=== PATIENT | female | born 2000 | race Caucasian/White ===

== ENCOUNTER 2020-03-15 20:56 | Emergency (ER) | payer MEDICAID, OTHER ==
--- NOTE | 2020-03-15 21:28 | EDM.PDOC ---
ED HPI GENERAL MEDICAL PROBLEM - General Chief Complaint: [employer] Problem Stated Complaint: VAG BLEEDING Time Seen by Provider: 03/15/20 21:28 Source of Information: Reports: Patient History Limitations: Reports: No Limitations - History of Present Illness INITIAL COMMENTS - FREE TEXT/NARRATIVE: PT ARRIVED WITH VAG SPOTTING AT APROX 6 WK GEATATION. sHE DID HAVE SOME CRAMPING TONIGHT. Onset: Today Duration: Hour(s): Location: Reports: Abdomen, Other ( VAG SPOTTING. ) Associated Symptoms: Reports: No Other Symptoms - Related Data Allergies Allergy/AdvReac Type Severity Reaction Status Date / Time Penicillins Allergy Cannot Verified 03/15/20 21:09 Remember Home Meds: Home Meds Comb No.42/Folic Acid [Prena1 Chew Tablet] 1 tab PO DAILY 03/15/20 [History] Past Medical History - Past Surgical History HEENT Surgical History: Reports: Myringotomy w Tube(s), Tonsillectomy Social & Family History - Tobacco Use Smoking Status *Q: Never Smoker ED ROS GENERAL - Review of Systems Review Of Systems: See Below Constitutional: Reports: No Symptoms HEENT: Reports: No Symptoms Respiratory: Reports: No Symptoms Cardiovascular: Reports: No Symptoms Endocrine: Reports: No Symptoms GI/Abdominal: Reports: No Symptoms : Reports: Other (PT IS 6 WKS PREG AND SHE IS NOW SPOTTING. ) Musculoskeletal: Reports: No Symptoms Skin: Reports: No Symptoms Neurological: Reports: No Symptoms Psychiatric: Reports: Anxiety Hematologic/Lymphatic: Reports: No Symptoms ED EXAM - Physical Exam Exam: See Below Text/Narrative:: PT ARRIVED WITH A HISTORY OF SPOTTING STARTING TODAY. sHE HAD CRAMPING THIS PM. Exam Limited By: No Limitations General Appearance: Alert, Anxious, Mild Distress Ears: Normal External Exam Nose: Normal Inspection Throat/Mouth: Normal Inspection Head: Atraumatic Neck: Normal Inspection Respiratory/Chest: No Respiratory Distress Cardiovascular: Regular Rate, Rhythm GI/Abdominal Exam: Soft, Non-Tender, Other ( NO MARKED TENDERNESS PRESENT. ) Rectal Exam: Deferred Back Exam: Normal Inspection Extremities: Normal Inspection Neurological: Alert, Oriented, Normal Cognition Course - Vital Signs Last Recorded V/S: Last Vital Signs Temp 36.9 C 03/15/20 21:16 Pulse 120 H 03/15/20 21:16 Resp 16 03/15/20 21:16 BP 132/93 H 03/15/20 21:16 Pulse Ox 98 03/15/20 21:16 - Orders/Labs/Meds Labs: Laboratory Tests 03/15/20 03/15/20 03/15/20 Range/Units 21:34 21:34 21:34 WBC 9.0 (4.5-11.0) K/uL RBC 5.01 (3.30-5.50) M/uL Hgb 14.4 (12.0-15.0) g/dL Hct 42.9 (36.0-48.0) % MCV 86 (80-98) fL MCH 29 (27-31) pg MCHC 34 (32-36) % Plt Count 360 (150-400) K/uL Neut % (Auto) 53 (36-66) % Lymph % (Auto) 37 (24-44) % [place] % (Auto) 8 H (2-6) % Eos % (Auto) 2 (2-4) % Baso % (Auto) 1 (0-1) % Sodium 139 L (140-148) mmol/L Potassium 3.8 (3.6-5.2) mmol/L Chloride 103 (100-108) mmol/L Carbon Dioxide 25 (21-32) mmol/L Anion Gap 14.8 H (5.0-14.0) mmol/L BUN 11 (7-18) mg/dL Creatinine 0.8 (0.6-1.0) mg/dL Est Cr Clr Drug Dosing 79.90 mL/min Estimated GFR (MDRD) > 60 (>60) Glucose 108 H (74-106) mg/dL Calcium 9.3 (8.5-10.1) mg/dL Total Bilirubin 0.3 (0.2-1.0) mg/dL AST 21 (15-37) U/L ALT 33 (12-78) U/L Alkaline Phosphatase 56 (46-116) U/L Total Protein 7.5 (6.4-8.2) g/dL Albumin 4.1 (3.4-5.0) g/dL Globulin 3.4 (2.3-3.5) g/dL Albumin/Globulin Ratio 1.2 (1.2-2.2) HCG, Quant 97 H (0-6) mIU/mL - Re-Assessments/Exams Free Text/Narrative Re-Assessment/Exam: 03/15/20 23:36 PT HAD A LOW HCG OF 95. sHE HAD A US WHICH SHOWED NO DEFINITE POLE OR SAC. hER OTHER LABS LOOK GOOD. Departure - Departure Time of Disposition: 23:30 Disposition: Home, Self-Care 01 Condition: Fair Clinical Impression: Abnormal human chorionic gonadotropin (hCG), Vaginal spotting - Discharge Information Instructions: Vaginal Bleeding During , First Trimester, [id number] Referrals: Anahi Vasquez CNM [Primary Care Provider] - Forms: ED Department Discharge Care Plan Goals: RTC IF PT SHOULD HAVE HEAVY BLEEDING, APPT WITH Anahi Vasquez IN 2 DAYS, REPEAT qUANTATIVE HCG AT THAT TIME. Sepsis Event Note (ED) - Evaluation Sepsis Screening Result: No Definite Risk
--- NOTE | 2020-03-16 00:03 | CRLUS ---
INDICATION: Vaginal bleeding, 5 weeks 0 days gestation by LMP TECHNIQUE: Ultrasound OB pelvis transvaginal. Real-time nieto-scale imaging of the pelvis was performed. COMPARISON: None FINDINGS: No intrauterine or extrauterine gestation identified. No free fluid. The uterus measures 7.7 x 2.6 x 3.8 cm. Endometrial stripe measures 0.8 cm. The ovaries are of normal size. Normal blood flow in both ovaries. IMPRESSION: No intrauterine or extrauterine gestation identified. This may be due to the early stage of . Recommend follow-up ultrasound. Dictated by Janee Rick MD @ Mar 16 2020 12:00AM Signed by Dr. Janee Rick @ Mar 16 2020 12:02AM
== END 2020-03-15 23:44 | disposition home or self-care (01) ==
LOC: JP.ED 20:56
DX: O26.851 Spotting complicating pregnancy, first trimester (principal); O99.891 Other specified diseases and conditions complicating pregnancy; R82.998 Other abnormal findings in urine; Z88.0 Allergy status to penicillin; Z3A.01 Less than 8 weeks gestation of pregnancy
CPT/HCPCS: 36415; 76801; 80053; 84702; 85025; 99283; 99284-25

== ENCOUNTER 2021-01-13 21:37 | Inpatient (IN) | payer OTHER ==
[2021-01-13] MEDS ORDERED: Sodium Chloride 0.9% 10 ML Syringe FLUSH PRN ×2 (22:14→23:34)
[2021-01-13] MEDS ORDERED: Acetaminophen 325 MG Tab PO PRN (23:34)
[2021-01-13] MEDS ORDERED: Ondansetron 4 MG/2 ML SDV IV PRN (23:34)
[2021-01-14 00:09] LABS: CORONAVIRUS COVID-19 NAA NEGATIVE (NEGATIVE)
--- NOTE | 2021-01-14 00:38 | PCM.LDHP ---
L&D History of Present Illness - General Date of Service: 01/14/21 Admit Problem/Dx: Patient Status Order with Admit Dx/Problem 01/13/21 22:11 Admission Status [Patient Status] [ADT] Routine 01/13/21 23:34 Patient Status [ADT] Routine Admission Diagnosis/Problem Admission Diagnosis/Problem - Related Data Allergies/Adverse Reactions: Allergies Allergy/AdvReac Type Severity Reaction Status Date / Time Penicillins Allergy Mild Hives Verified 01/13/21 21:57 Home Medications: Home Meds Comb No.42/Folic Acid [Prena1 Chew Tablet] 1 tab PO DAILY 03/15/20 [History] hydrOXYzine HCL [hydrOXYzine] 25 mg PO BEDTIME PRN 01/13/21 [History] Past Medical History PRESSER HAND History: Reports: - Past Surgical History HEENT Surgical History: Reports: Myringotomy w Tube(s), Tonsillectomy Social & Family History - Family History Family Medical History: No Pertinent Family History - Tobacco Use Tobacco Use Status *Q: Never Tobacco User Second Hand Smoke Exposure: No - Caffeine Use Caffeine Use: Reports: Coffee - Recreational Drug Use Recreational Drug Use: No H&P Review of Systems - Review of Systems: Review Of Systems: See Below General: Reports: No Symptoms HEENT: Reports: No Symptoms Pulmonary: Reports: No Symptoms Cardiovascular: Reports: No Symptoms Gastrointestinal: Reports: No Symptoms Genitourinary: Reports: No Symptoms Musculoskeletal: Reports: No Symptoms Skin: Reports: No Symptoms Psychiatric: Reports: No Symptoms Neurological: Reports: No Symptoms Hematologic/Lymphatic: Reports: No Symptoms Immunologic: Reports: No Symptoms L&D Exam - Exam Exam: See Below - Vital Signs Vital Signs: Last Vital Signs Temp 36.4 C 01/13/21 22:00 Pulse 120 H 01/13/21 22:00 Resp 18 01/13/21 22:00 BP 131/70 01/13/21 22:00 Pulse Ox 97 01/13/21 22:00 Weight: 72.575 kg - OB Specific Contraction Duration (sec): 30-80 Contraction Frequency (min): 1.5-4 Contraction Intensity: Mild Heart Rate (FHR) Variability: Moderate (6-25 bpm) Presentation: Vertex - Nagel Score Nagel Score Cervix Position: Anterior Nagel Score Consistency: Soft Nagel Score Effacement: >80% Nagel Score Dilation: 1-2 cm Nagel Score Infant's Station: -2 Nagel Score Total: 9 - Exam General: Alert, Oriented, Cooperative HEENT: PERRLA, Conjunctiva Clear, EACs Clear, EOMI, Hearing Intact, Mucosa Moist & [place], Nares Patent, Normal Nasal Septum, Posterior Pharynx Clear, TMs Clear Neck: Supple, Trachea Midline Lungs: Clear to Auscultation, Normal Respiratory Effort Cardiovascular: Regular Rate, Regular Rhythm GI/Abdominal Exam: Normal Bowel Sounds, Soft, Non-Tender, No Organomegaly, No Distention, No Abnormal Bruit, No Mass, Pelvis Stable Rectal Exam: Normal Exam, Normal Rectal Tone Genitourinary: Normal external exam, Normal bimanual exam, Normal speculum exam Back Exam: Normal Inspection, Full Range of Motion Extremities: Normal Inspection, Normal Range of Motion, Non-Tender, No Pedal Edema, Normal Capillary Refill Skin: Warm, Dry, Intact Neurological: Cranial Nerves Intact, Reflexes Equal Bilateral Psychiatric: Alert, Normal Affect, Normal Mood - Patient Data Lab Results Last 24 hrs: Laboratory Results - last 24 hr 01/13/21 01/13/21 01/13/21 Range/Units 21:46 21:57 22:15 WBC (4.5-11.0) K/uL RBC (3.30-5.50) M/uL Hgb (12.0-15.0) g/dL Hct (36.0-48.0) % MCV (80-98) fL MCH (27-31) pg MCHC (32-36) % Plt Count (150-400) K/uL Neut % (Auto) (36-66) % Lymph % (Auto) (24-44) % [place] % (Auto) (2-6) % Eos % (Auto) (2-4) % Baso % (Auto) (0-1) % Urine Color Yellow (YELLOW) Urine Appearance Turbid A (CLEAR) Urine pH 7.5 (5.0-8.0) Ur Specific [place] 1.015 (1.008-1.030) Urine Protein 100 H (NEGATIVE) mg/dL Urine Glucose (UA) Negative (NEGATIVE) mg/dL Urine Ketones Negative (NEGATIVE) mg/dL Urine Occult Blood Trace-intact H (NEGATIVE) Urine Nitrite Negative (NEGATIVE) Urine Bilirubin Negative (NEGATIVE) Urine Urobilinogen 0.2 (0.2-1.0) EU/dL Ur Leukocyte Esterase Small H (NEGATIVE) Urine RBC 0-5 (0-5) Urine WBC 0-5 (0-5) Ur Epithelial Cells Moderate Amorphous Sediment Moderate Urine Bacteria Few Urine Mucus Moderate Membrane Rupture Positive H (NEGATIVE) Urine Opiates Screen Negative (NEGATIVE) Ur Oxycodone Screen Negative (NEGATIVE) Urine Methadone Screen Negative (NEGATIVE) Ur Propoxyphene Screen Negative (NEGATIVE) Ur Barbiturates Screen Negative (NEGATIVE) Ur Tricyclics Screen Negative (NEGATIVE) Ur Phencyclidine Scrn Negative (NEGATIVE) Ur Amphetamine Screen Negative (NEGATIVE) U Methamphetamines Scrn Negative (NEGATIVE) Urine MDMA Screen Negative (NEGATIVE) U Benzodiazepines Scrn Negative (NEGATIVE) U Cocaine Metab Screen Negative (NEGATIVE) U Marijuana (THC) Screen Negative (NEGATIVE) 01/13/21 Range/Units 22:24 WBC 9.9 (4.5-11.0) K/uL RBC 4.16 (3.30-5.50) M/uL Hgb 12.7 (12.0-15.0) g/dL Hct 36.3 (36.0-48.0) % MCV 87 (80-98) fL MCH 31 (27-31) pg MCHC 35 (32-36) % Plt Count 248 (150-400) K/uL Neut % (Auto) 69.5 H (36-66) % Lymph % (Auto) 22.4 L (24-44) % [place] % (Auto) 7.0 H (2-6) % Eos % (Auto) 0.9 L (2-4) % Baso % (Auto) 0.2 (0-1) % Urine Color (YELLOW) Urine Appearance (CLEAR) Urine pH (5.0-8.0) Ur Specific [place] (1.008-1.030) Urine Protein (NEGATIVE) mg/dL Urine Glucose (UA) (NEGATIVE) mg/dL Urine Ketones (NEGATIVE) mg/dL Urine Occult Blood (NEGATIVE) Urine Nitrite (NEGATIVE) Urine Bilirubin (NEGATIVE) Urine Urobilinogen (0.2-1.0) EU/dL Ur Leukocyte Esterase (NEGATIVE) Urine RBC (0-5) Urine WBC (0-5) Ur Epithelial Cells Amorphous Sediment Urine Bacteria Urine Mucus Membrane Rupture (NEGATIVE) Urine Opiates Screen (NEGATIVE) Ur Oxycodone Screen (NEGATIVE) Urine Methadone Screen (NEGATIVE) Ur Propoxyphene Screen (NEGATIVE) Ur Barbiturates Screen (NEGATIVE) Ur Tricyclics Screen (NEGATIVE) Ur Phencyclidine Scrn (NEGATIVE) Ur Amphetamine Screen (NEGATIVE) U Methamphetamines Scrn (NEGATIVE) Urine MDMA Screen (NEGATIVE) U Benzodiazepines Scrn (NEGATIVE) U Cocaine Metab Screen (NEGATIVE) U Marijuana (THC) Screen (NEGATIVE) Result Diagrams: 01/13/21 22:24 - Problem List (1) SROM (spontaneous rupture of membranes) SNOMED Code(s): 316058521 ICD Code: ALG0831 - Status: Acute Current Visit: Yes (2) SNOMED Code(s): 11035426 ICD Code: Z34.90 - ENCNTR FOR SUPRVSN OF NORMAL , UNSP, UNSP TRIMESTER Status: Acute Current Visit: Yes Qualifiers: Weeks of gestation: 39 weeks Qualified Code(s): Z3A.39 - 39 weeks gestation of (3) Primigravida SNOMED Code(s): 012494570 ICD Code: Z34.00 - ENCNTR FOR SUPRVSN OF NORMAL FIRST , UNSP TRIMESTER Status: Acute Current Visit: Yes Qualifiers: Trimester: third trimester Qualified Code(s): Z34.03 - Encounter for supervision of normal first , third trimester Problem List Initiated/Reviewed/Updated: Yes Orders Last 24hrs: Active Orders 24 hr Category Date Time Status Admission Status [Patient Status] [ADT] Routine ADT 01/13/21 22:11 Active Patient Status [ADT] Routine ADT 01/13/21 23:34 Active Ambulate [RC] PER UNIT ROUTINE Care 01/13/21 23:34 Active Communication Order [RC] ASDIRECTED Care 01/13/21 23:34 Active Heart Tones [RC] PER UNIT ROUTINE Care 01/13/21 23:34 Active Non Stress Test [RC] Click to Edit Care 01/13/21 23:34 Active May Shower [RC] ASDIRECTED Care 01/13/21 23:34 Active Notify Provider Vital Signs [RC] PRN Care 01/13/21 23:34 Active Notify Provider [RC] PRN Care 01/13/21 23:34 Active OB Check [OM.PC] Click To Edit Care 01/13/21 21:40 Ordered Up ad Jagruti [RC] ASDIRECTED Care 01/13/21 23:34 Active VTE/DVT Education [RC] Click to Edit Care 01/13/21 23:36 Active Vital Signs [RC] PER UNIT ROUTINE Care 01/13/21 23:34 Active Regular Diet [DIET] Diet 01/13/21 Breakfast Active COVID-19/FLU A+B/RSV [MOLEC] Urgent Lab 01/13/21 22:58 Received Acetaminophen [TylenoL] Med 01/13/21 23:34 Active 650 mg PO Q4H PRN Ondansetron [Zofran] Med 01/13/21 23:34 Active 4 mg IV Q4H PRN Oxytocin/Normal Saline [Pitocin in NS 20 Units/1,000 ML Med 01/14/21 04:00 Active ] 20 unit in 1,000 ml IV TITRATE Sodium Chloride 0.9% [Saline Flush] Med 01/13/21 22:14 Active 10 ml FLUSH ASDIRECTED PRN Sodium Chloride 0.9% [Saline Flush] Med 01/13/21 23:34 Active 10 ml FLUSH ASDIRECTED PRN DVT/VTE Prophylaxis Reflex [OM.PC] Routine Oth 01/13/21 23:34 Ordered Saline Lock Insert [OM.PC] Routine Oth 01/13/21 22:14 Ordered Saline Lock Insert [OM.PC] Routine Oth 01/13/21 23:34 Ordered Resuscitation Status Routine Resus Stat 01/13/21 23:34 Ordered Medication Orders Acetaminophen (Acetaminophen 325 Mg Tab) 650 mg PO Q4H PRN PRN Reason: Pain (Mild 1-3) and fever Oxytocin/Sodium Chloride (Pitocin In Ns 20 Units/1,000 Ml) 20 unit in 1,000 mls @ 6 mls/hr IV TITRATE JAYME; Protocol Ondansetron HCl (Ondansetron 4 Mg/2 Ml Sdv) 4 mg IV Q4H PRN PRN Reason: Nausea/Vomiting Sodium Chloride (Sodium Chloride 0.9% 10 Ml Syringe) 10 ml FLUSH ASDIRECTED PRN PRN Reason: Keep Vein Open Sodium Chloride (Sodium Chloride 0.9% 10 Ml Syringe) 10 ml FLUSH ASDIRECTED PRN PRN Reason: Keep Vein Open Assessment/Plan Comment:: 20 yo here at 39 4/7 gestational weeks. She came in with SROM at home on 01/13/2021 at 2130. She denied very many contractions at this time. SVE-2/80/-2 Amnisure positive FHTs category one Labs-A positive, Hep B neg, Hep C neg, HIV neg, RPR nonreactive, Rubella Immune, GBS negative Plan- Monitor for labor Monitor FHTs Patient may eat regular diet Patient may be up ad jagruti Pain management per patient request If no cervical change will initiate pitocin per protocol Plan and anticipate a vaginal delivery
[2021-01-14] MEDS: Misoprostol 25 MCG (1/4 of 100 MCG) Tab PO SCH ×2 (02:45→05:01)
[2021-01-14] MEDS ORDERED: hydrOXYzine HCL 100 MG/2 ML SDV IM ONE (02:59)
[2021-01-14] MEDS ORDERED: Lactated Ringers 1,000 ML IV SCH ×2 (05:15→07:15)
[2021-01-14] MEDS ORDERED: diphenhydrAMINE 50 MG/ML SDV IVPUSH PRN ×3 (07:06→17:00)
[2021-01-14] MEDS ORDERED: Naloxone 0.4 MG/ML SDV IVPUSH PRN ×2 (07:06→17:00)
[2021-01-14] MEDS ORDERED: ePHEDrine 50 MG/ML SDV IVPUSH PRN (07:06)
[2021-01-14] MEDS ORDERED: Sodium Chloride 0.9% 10 ML Syringe FLUSH PRN (07:06)
[2021-01-14] MEDS ORDERED: Ropivacaine 200 MG in Premix Bag 1 BAG EPIDUR SCH (07:15)
[2021-01-14] MEDS ORDERED: fentaNYL 100 MCG/2 ML SDV IVPUSH ONE (07:23)
--- NOTE | 2021-01-14 08:30 | PCM.PNLD ---
Labor Progress Note - VS & Meds Vital Signs: Last Vital Signs Temp 36.1 C 01/14/21 07:28 Pulse 84 01/14/21 07:28 Resp 18 01/14/21 07:28 BP 121/74 01/14/21 07:28 Pulse Ox 98 01/14/21 07:28 Active Medications: Current Medications Acetaminophen (Acetaminophen 325 Mg Tab) 650 mg PO Q4H PRN PRN Reason: Pain (Mild 1-3) and fever Diphenhydramine HCl (Diphenhydramine 50 Mg/Ml Sdv) 25 mg IVPUSH Q6H PRN PRN Reason: Itching Diphenhydramine HCl (Diphenhydramine 50 Mg/Ml Sdv) 50 mg IVPUSH Q6H PRN PRN Reason: Itching Ephedrine Sulfate (Ephedrine 50 Mg/Ml Sdv) 10 mg IVPUSH ASDIRECTED PRN PRN Reason: Hypotension Oxytocin/Sodium Chloride (Pitocin In Ns 20 Units/1,000 Ml) 20 unit in 1,000 mls @ 6 mls/hr IV TITRATE JAYME; Protocol Lactated Ringer's (Ringers, Lactated) 1,000 mls @ 125 mls/hr IV ASDIRECTED JAYME Ropivacaine 200 mg/ Premix 100 mls @ 0 mls/hr EPIDUR ASDIRECTED JAYME Naloxone HCl (Naloxone 0.4 Mg/Ml Sdv) 0.1 mg IVPUSH ASDIRECTED PRN PRN Reason: Oversedation Ondansetron HCl (Ondansetron 4 Mg/2 Ml Sdv) 4 mg IV Q4H PRN PRN Reason: Nausea/Vomiting Sodium Chloride (Sodium Chloride 0.9% 10 Ml Syringe) 10 ml FLUSH ASDIRECTED PRN PRN Reason: Keep Vein Open Sodium Chloride (Sodium Chloride 0.9% 10 Ml Syringe) 10 ml FLUSH ASDIRECTED PRN PRN Reason: Keep Vein Open Sodium Chloride (Sodium Chloride 0.9% 10 Ml Syringe) 10 ml FLUSH ASDIRECTED PRN PRN Reason: Keep Vein Open Discontinued Medications Fentanyl (Fentanyl 100 Mcg/2 Ml Sdv) 100 mcg IVPUSH ONETIME ONE Stop: 01/14/21 07:24 Last Admin: 01/14/21 07:31 Dose: 50 mcg Documented by: Hydroxyzine HCl (Hydroxyzine Hcl 100 Mg/2 Ml Sdv) 100 mg IM ONETIME ONE Stop: 01/14/21 03:00 Last Admin: 01/14/21 03:10 Dose: 100 mg Documented by: Lactated Ringer's (Ringers, Lactated) 1,000 mls @ 999 mls/hr IV ASDIRECTED [facility] Stop: 01/14/21 08:08 Misoprostol (Misoprostol 25 Mcg (1/4 Of 100 Mcg) Tab) 25 mcg PO Q2H [facility] Stop: 01/14/21 04:31 Last Admin: 01/14/21 05:01 Dose: 25 mcg Documented by: - Uterine Contractions Uterine Monitoring Mode: External [place] Contraction Frequency (min): 4-11 Contraction Duration (sec): 50-80 Contraction Intensity: Moderate Uterine Resting Tone: Soft - Monitoring Monitor Mode: External Ultrasound Heart Rate (FHR) Variability: Moderate (6-25 bpm) Accelerations: Present, 15x15 Decelerations: None Strip Review: Category I - Vaginal Exam Dilation (cm): 2 Effacement (Percent): 80 Station: -2 Cervical Position: Midposition Sterile Vaginal Exam Performed By: Anahi Cano - Labor Progress (Free Text) Labor Progress: 01/14/2021 Patient has not progressed much with SVE FHTs category one Contractions still irregular at bedside and supportive Plan- Will start with oral cytotec 25 mcg every two hours Then is still not good labor pattern will start pitocin per protocol Continue to monitor labor Continue to monitor FHTs Pain management per patient request Plan and anticipate a vaginal delivery
--- NOTE | 2021-01-14 08:38 | PCM.PNLD ---
Labor Progress Note - VS & Meds Vital Signs: Last Vital Signs Temp 36.1 C 01/14/21 07:28 Pulse 84 01/14/21 07:28 Resp 18 01/14/21 07:28 BP 121/74 01/14/21 07:28 Pulse Ox 98 01/14/21 07:28 Active Medications: Current Medications Acetaminophen (Acetaminophen 325 Mg Tab) 650 mg PO Q4H PRN PRN Reason: Pain (Mild 1-3) and fever Diphenhydramine HCl (Diphenhydramine 50 Mg/Ml Sdv) 25 mg IVPUSH Q6H PRN PRN Reason: Itching Diphenhydramine HCl (Diphenhydramine 50 Mg/Ml Sdv) 50 mg IVPUSH Q6H PRN PRN Reason: Itching Ephedrine Sulfate (Ephedrine 50 Mg/Ml Sdv) 10 mg IVPUSH ASDIRECTED PRN PRN Reason: Hypotension Oxytocin/Sodium Chloride (Pitocin In Ns 20 Units/1,000 Ml) 20 unit in 1,000 mls @ 6 mls/hr IV TITRATE JAYME; Protocol Lactated Ringer's (Ringers, Lactated) 1,000 mls @ 125 mls/hr IV ASDIRECTED JAYME Ropivacaine 200 mg/ Premix 100 mls @ 0 mls/hr EPIDUR ASDIRECTED JAYME Naloxone HCl (Naloxone 0.4 Mg/Ml Sdv) 0.1 mg IVPUSH ASDIRECTED PRN PRN Reason: Oversedation Ondansetron HCl (Ondansetron 4 Mg/2 Ml Sdv) 4 mg IV Q4H PRN PRN Reason: Nausea/Vomiting Sodium Chloride (Sodium Chloride 0.9% 10 Ml Syringe) 10 ml FLUSH ASDIRECTED PRN PRN Reason: Keep Vein Open Sodium Chloride (Sodium Chloride 0.9% 10 Ml Syringe) 10 ml FLUSH ASDIRECTED PRN PRN Reason: Keep Vein Open Sodium Chloride (Sodium Chloride 0.9% 10 Ml Syringe) 10 ml FLUSH ASDIRECTED PRN PRN Reason: Keep Vein Open Discontinued Medications Fentanyl (Fentanyl 100 Mcg/2 Ml Sdv) 100 mcg IVPUSH ONETIME ONE Stop: 01/14/21 07:24 Last Admin: 01/14/21 07:31 Dose: 50 mcg Documented by: Hydroxyzine HCl (Hydroxyzine Hcl 100 Mg/2 Ml Sdv) 100 mg IM ONETIME ONE Stop: 01/14/21 03:00 Last Admin: 01/14/21 03:10 Dose: 100 mg Documented by: Lactated Ringer's (Ringers, Lactated) 1,000 mls @ 999 mls/hr IV ASDIRECTED [facility] Stop: 01/14/21 08:08 Misoprostol (Misoprostol 25 Mcg (1/4 Of 100 Mcg) Tab) 25 mcg PO Q2H [facility] Stop: 01/14/21 04:31 Last Admin: 01/14/21 05:01 Dose: 25 mcg Documented by: - Uterine Contractions Uterine Monitoring Mode: External [place] Contraction Frequency (min): 6.5-11 Contraction Duration (sec): 50-80 Contraction Intensity: Moderate Uterine Resting Tone: Soft - Monitoring Monitor Mode: External Ultrasound Heart Rate (FHR) Variability: Moderate (6-25 bpm) Accelerations: Present, 15x15 Decelerations: None Strip Review: Category I - Vaginal Exam Dilation (cm): 4 Effacement (Percent): 90 Station: -1 Cervical Position: Anterior Sterile Vaginal Exam Performed By: Anahi Cano - Labor Progress (Free Text) Labor Progress: 01/14/2021 Patient slowly progressing SVE-4//-1 Did have a forebag so AROM to that and clear fluid FHTs category one Contractions still very irregular Patient did request epidural-got a half dose of fentanyl while waiting remains at bedside and supportive Patient doing well with position changes Plan- Continue to monitor labor Continue to monitor FHTs Patient can get an epidural for pain management Start pitocin after epidural per protocol Position change regularly after epidural Place urinary catheter after epidural Plan and anticipate a vaginal delivery
[2021-01-14] MEDS ORDERED: Ropivacaine 100 ML ONE (09:36)
[2021-01-14] MEDS ORDERED: Clindamycin Phosphate 900 MG in Sodium Chloride 0.9% 100 ML IV SCH (11:30)
[2021-01-14] MEDS ORDERED: Lactated Ringers 500 ML IV ONE (11:30)
--- NOTE | 2021-01-14 12:38 | ANES ---
DATE OF SERVICE: 01/14/2021 INDICATION: Rosie is a 20-year-old female, patient of Anahi Cano CNM. I was consulted to assess the patient for labor epidural. Upon arrival, I found a healthy 20-year- old female patient and I discussed with her risks and benefits as well as the procedure. I also discussed with her procedure and reviewed her history, found no contraindication to epidural placement. I reviewed lab work, found no contraindication. TECHNIQUE: I had her seated at the edge of the bed. Betadine prep x3 to lumbar region. Sterile drape was placed, 1% lidocaine skin wheal as well as deep at the L4-L5 region. A 17- gauge Tuohy was placed to loss of resistance. Negative CSF, negative heme, negative paresthesia. I placed a silicone catheter to 13 cm. I removed the needle. I introduced a test dose of 3 mL of 1.5% lidocaine, 1:200,000 epinephrine. She tolerated that quite well. I placed her in a supine position after securing catheter, dosed her with 12 mL 0.2% ropivacaine and began infusion of 12 mL an hour of the same 0.2% ropivacaine. She tolerated the procedure quite well. Please refer to nurse's notes for vital signs and neuro status, which were unchanged and within normal limits. I reviewed the procedure with the dose to the nurse. Castillo Lerner CRNA /[id number]
--- NOTE | 2021-01-14 12:44 | PCM.PNLD ---
Labor Progress Note - VS & Meds Vital Signs: Last Vital Signs Temp 36.1 C 01/14/21 07:28 Pulse 104 H 01/14/21 11:53 Resp 18 01/14/21 11:53 BP 122/75 01/14/21 11:53 Pulse Ox 99 01/14/21 11:51 Active Medications: Current Medications Acetaminophen (Acetaminophen 325 Mg Tab) 650 mg PO Q4H PRN PRN Reason: Pain (Mild 1-3) and fever Diphenhydramine HCl (Diphenhydramine 50 Mg/Ml Sdv) 25 mg IVPUSH Q6H PRN PRN Reason: Itching Diphenhydramine HCl (Diphenhydramine 50 Mg/Ml Sdv) 50 mg IVPUSH Q6H PRN PRN Reason: Itching Ephedrine Sulfate (Ephedrine 50 Mg/Ml Sdv) 10 mg IVPUSH ASDIRECTED PRN PRN Reason: Hypotension Oxytocin/Sodium Chloride (Pitocin In Ns 20 Units/1,000 Ml) 20 unit in 1,000 mls @ 6 mls/hr IV TITRATE [facility]; Protocol Last Titration: 01/14/21 11:10 Dose: 0 munits/min, 0 mls/hr Documented by: Lactated Ringer's (Ringers, Lactated) 1,000 mls @ 125 mls/hr IV ASDIRECTED [facility] Last Admin: 01/14/21 08:42 Dose: 125 mls/hr Documented by: Ropivacaine 200 mg/ Premix 100 mls @ 0 mls/hr EPIDUR ASDIRECTED [facility] Clindamycin Phosphate 900 mg/ (Sodium Chloride) 106 mls @ 200 mls/hr IV Q8H [facility] Last Admin: 01/14/21 11:44 Dose: 200 mls/hr Documented by: Naloxone HCl (Naloxone 0.4 Mg/Ml Sdv) 0.1 mg IVPUSH ASDIRECTED PRN PRN Reason: Oversedation Ondansetron HCl (Ondansetron 4 Mg/2 Ml Sdv) 4 mg IV Q4H PRN PRN Reason: Nausea/Vomiting Sodium Chloride (Sodium Chloride 0.9% 10 Ml Syringe) 10 ml FLUSH ASDIRECTED PRN PRN Reason: Keep Vein Open Discontinued Medications Fentanyl (Fentanyl 100 Mcg/2 Ml Sdv) 100 mcg IVPUSH ONETIME ONE Stop: 01/14/21 07:24 Last Admin: 01/14/21 07:31 Dose: 50 mcg Documented by: Hydroxyzine HCl (Hydroxyzine Hcl 100 Mg/2 Ml Sdv) 100 mg IM ONETIME ONE Stop: 01/14/21 03:00 Last Admin: 01/14/21 03:10 Dose: 100 mg Documented by: Lactated Ringer's (Ringers, Lactated) 1,000 mls @ 999 mls/hr IV ASDIRECTED [facility] Stop: 01/14/21 08:08 Last Admin: 01/14/21 07:10 Dose: 999 mls/hr Documented by: Ropivacaine (Naropin 0.2%) Confirm Administered Dose 100 mls @ as directed .ROUTE .STK-MED ONE Stop: 01/14/21 09:37 Lactated Ringer's (Ringers, Lactated) 500 mls @ 999 mls/hr IV ASDIRECTED ONE Stop: 01/14/21 12:00 Last Admin: 01/14/21 11:30 Dose: 999 mls/hr Documented by: Misoprostol (Misoprostol 25 Mcg (1/4 Of 100 Mcg) Tab) 25 mcg PO Q2H [facility] Stop: 01/14/21 04:31 Last Admin: 01/14/21 05:01 Dose: 25 mcg Documented by: - Uterine Contractions Uterine Monitoring Mode: External [place] Contraction Frequency (min): 2.5-5.5 Contraction Duration (sec): 40-70 Contraction Intensity: Mild to Moderate Uterine Resting Tone: Soft - Monitoring Monitor Mode: External Ultrasound Heart Rate (FHR) Variability: Moderate (6-25 bpm) Accelerations: Present, 15x15 Decelerations: None Strip Review: Category I - Vaginal Exam Dilation (cm): 4 Effacement (Percent): 90 Station: -1 Cervical Position: Anterior Sterile Vaginal Exam Performed By: Anahi Cano - Labor Progress (Free Text) Labor Progress: 01/14/2021 Patient still not progressing FHTs occasionally have variables with contractions SVE unchanged Did shut Pitocin off for a Pitocin break. IV bolus initiated Position changed Started antibiotics for prolonged rupture of membranes Plan- Continue to monitor labor Continue to monitor FHTs Continue epidural for pain management Continue position change as needed
[2021-01-14] MEDS ORDERED: fentaNYL 100 MCG/2 ML SDV ONE ×2 (13:22→14:46)
[2021-01-14] MEDS ORDERED: Lidocaine 2% 5 ML SDV ONE (13:23)
[2021-01-14] MEDS ORDERED: Oxytocin 10 Units/1 ML SDV ONE (13:24)
[2021-01-14] MEDS ORDERED: Sodium Chloride 0.9% 10 ML ONE (13:24)
[2021-01-14] MEDS ORDERED: cefOXitin 2 GM Vial ONE (13:24)
[2021-01-14] MEDS ORDERED: Bupivacaine 0.5% 30 ML SDV ONE (13:45)
[2021-01-14] MEDS: Oxytocin 10 Units/1 ML SDV ONE ×2 (14:02→14:10)
[2021-01-14] MEDS: cefOXitin 1 GM Vial ONE ×3 (14:03→14:32)
[2021-01-14] MEDS ORDERED: Morphine PF 10 MG/10 ML SDV ONE (14:29)
--- NOTE | 2021-01-14 15:28 | PCM.PNLD ---
Labor Progress Note - VS & Meds Vital Signs: Last Vital Signs Temp 37 C 01/14/21 15:25 Pulse 99 01/14/21 15:25 Resp 16 01/14/21 15:25 BP 115/78 01/14/21 15:25 Pulse Ox 99 01/14/21 15:25 Active Medications: Current Medications Acetaminophen (Acetaminophen 325 Mg Tab) 650 mg PO Q4H PRN PRN Reason: Pain (Mild 1-3) and fever Diphenhydramine HCl (Diphenhydramine 50 Mg/Ml Sdv) 25 mg IVPUSH Q6H PRN PRN Reason: Itching Diphenhydramine HCl (Diphenhydramine 50 Mg/Ml Sdv) 50 mg IVPUSH Q6H PRN PRN Reason: Itching Ephedrine Sulfate (Ephedrine 50 Mg/Ml Sdv) 10 mg IVPUSH ASDIRECTED PRN PRN Reason: Hypotension Oxytocin/Sodium Chloride (Pitocin In Ns 20 Units/1,000 Ml) 20 unit in 1,000 mls @ 6 mls/hr IV TITRATE [facility]; Protocol Last Titration: 01/14/21 12:50 Dose: 2 munits/min, 6 mls/hr Documented by: Lactated Ringer's (Ringers, Lactated) 1,000 mls @ 125 mls/hr IV ASDIRECTED [facility] Last Admin: 01/14/21 08:42 Dose: 125 mls/hr Documented by: Ropivacaine 200 mg/ Premix 100 mls @ 0 mls/hr EPIDUR ASDIRECTED [facility] Clindamycin Phosphate 900 mg/ (Sodium Chloride) 106 mls @ 200 mls/hr IV Q8H [facility] Last Admin: 01/14/21 11:44 Dose: 200 mls/hr Documented by: Naloxone HCl (Naloxone 0.4 Mg/Ml Sdv) 0.1 mg IVPUSH ASDIRECTED PRN PRN Reason: Oversedation Ondansetron HCl (Ondansetron 4 Mg/2 Ml Sdv) 4 mg IV Q4H PRN PRN Reason: Nausea/Vomiting Sodium Chloride (Sodium Chloride 0.9% 10 Ml Syringe) 10 ml FLUSH ASDIRECTED PRN PRN Reason: Keep Vein Open Discontinued Medications Bupivacaine HCl (Bupivacaine 0.5% 30 Ml Sdv) Confirm Administered Dose 30 ml .ROUTE .STK-MED ONE Stop: 01/14/21 13:46 Cefoxitin Sodium (Cefoxitin 1 Gm Vial) Confirm Administered Dose 1 gm .ROUTE .[facility] ONE Stop: 01/14/21 13:20 Last Admin: 01/14/21 14:32 Dose: 1 gm Documented by: Cefoxitin Sodium (Cefoxitin 2 Gm Vial) Confirm Administered Dose 2 gm .ROUTE .[facility] ONE Stop: 01/14/21 13:25 Fentanyl (Fentanyl 100 Mcg/2 Ml Sdv) 100 mcg IVPUSH ONETIME ONE Stop: 01/14/21 07:24 Last Admin: 01/14/21 07:31 Dose: 50 mcg Documented by: Fentanyl (Fentanyl 100 Mcg/2 Ml Sdv) Confirm Administered Dose 100 mcg .ROUTE .[facility] ONE Stop: 01/14/21 13:23 Fentanyl (Fentanyl 100 Mcg/2 Ml Sdv) Confirm Administered Dose 100 mcg .ROUTE .[facility] ONE Stop: 01/14/21 14:47 Hydroxyzine HCl (Hydroxyzine Hcl 100 Mg/2 Ml Sdv) 100 mg IM ONETIME ONE Stop: 01/14/21 03:00 Last Admin: 01/14/21 03:10 Dose: 100 mg Documented by: Lactated Ringer's (Ringers, Lactated) 1,000 mls @ 999 mls/hr IV ASDIRECTED [facility] Stop: 01/14/21 08:08 Last Admin: 01/14/21 07:10 Dose: 999 mls/hr Documented by: Ropivacaine (Naropin 0.2%) Confirm Administered Dose 100 mls @ as directed .ROUTE .[facility] ONE Stop: 01/14/21 09:37 Lactated Ringer's (Ringers, Lactated) 500 mls @ 999 mls/hr IV ASDIRECTED ONE Stop: 01/14/21 12:00 Last Admin: 01/14/21 11:30 Dose: 999 mls/hr Documented by: Sodium Chloride (Normal Saline) Confirm Administered Dose 10 mls @ as directed .ROUTE .[facility] ONE Stop: 01/14/21 13:25 Lidocaine (Lidocaine 2% 5 Ml Sdv) Confirm Administered Dose 15 ml .ROUTE .[facility] ONE Stop: 01/14/21 13:24 Misoprostol (Misoprostol 25 Mcg (1/4 Of 100 Mcg) Tab) 25 mcg PO Q2H [facility] Stop: 01/14/21 04:31 Last Admin: 01/14/21 05:01 Dose: 25 mcg Documented by: Morphine Sulfate (Morphine Pf 10 Mg/10 Ml Sdv) Confirm Administered Dose 10 mg .ROUTE .STK-MED ONE Stop: 01/14/21 14:30 Oxytocin (Oxytocin 10 Units/1 Ml Sdv) Confirm Administered Dose 10 unit .ROUTE .STK-MED ONE Stop: 01/14/21 13:20 Last Admin: 01/14/21 14:10 Dose: 10 unit Documented by: Oxytocin (Oxytocin 10 Units/1 Ml Sdv) Confirm Administered Dose 20 unit .ROUTE .STK-MED ONE Stop: 01/14/21 13:25 - Uterine Contractions Uterine Monitoring Mode: External [place] Contraction Frequency (min): 2.5-5 Contraction Duration (sec): 40-100 Contraction Intensity: Mild to Moderate Uterine Resting Tone: Soft - Monitoring Monitor Mode: External Ultrasound Heart Rate (FHR) Variability: Moderate (6-25 bpm) Accelerations: Present, 15x15 Decelerations: None Strip Review: Category I - Vaginal Exam Dilation (cm): 6 Effacement (Percent): 90 Station: -1 Cervical Position: Anterior Sterile Vaginal Exam Performed By: Anahi Cano - Labor Progress (Free Text) Labor Progress: 01/14/2021 Patient has made very little progress again. Patient and significant other are tearful and frustrated. Patient desires a primary for failure to progress. Discussed risks and benefits of with patient and spouse. Both verbalize understanding and agree with plan of care. Decision made to proceed with primary . OR crew notified and Dr Bear notified. FHTs category one Contractions still irregular
[2021-01-14] MEDS ORDERED: Lanolin 100% Cream 40 GM Tube TOP PRN (15:29)
[2021-01-14] MEDS ORDERED: hydrOXYzine HCL 100 MG/2 ML SDV IM PRN (15:56)
[2021-01-14] MEDS ORDERED: Naloxone 0.4 MG/ML SDV IV PRN (17:00)
[2021-01-14] MEDS: Ibuprofen 600 MG Tab PO SCH ×2 (17:40→23:13)
[2021-01-14] MEDS: Acetaminophen 500 MG Tab PO SCH ×2 (17:40→23:13)
[2021-01-14] MEDS: Dextrose 5%-Lactated Ringers 1,000 ML IV SCH (19:42)
[2021-01-14] MEDS: cefOXitin 2 GM in Sodium Chloride 0.9% 50 ML IV SCH (19:44)
[2021-01-15] MEDS: Morphine PF 10 MG/10 ML SDV EPIDUR SCH ×3 (00:14→21:57)
[2021-01-15] MEDS: Dextrose 5%-Lactated Ringers 1,000 ML IV SCH (01:36)
[2021-01-15] MEDS: cefOXitin 2 GM in Sodium Chloride 0.9% 50 ML IV SCH ×4 (01:37→21:07)
[2021-01-15] MEDS: Ibuprofen 600 MG Tab PO SCH ×4 (06:23→22:08)
[2021-01-15] MEDS: Acetaminophen 500 MG Tab PO SCH ×4 (06:24→22:08)
[2021-01-15] MEDS ORDERED: Dextrose 5%-Lactated Ringers 1,000 ML IV SCH (07:30)
[2021-01-15] MEDS ORDERED: Morphine PF 10 MG/10 ML SDV ONE (07:31)
[2021-01-15] MEDS: Docusate Sodium 100 MG Cap PO SCH ×2 (08:24→21:08)
--- NOTE | 2021-01-15 09:26 | PN ---
DATE OF SERVICE: 01/15/2021 The patient is postop day #1 from a section for failure to progress. Clinically, she has done well overnight. Hemoglobin is in the 9's, but has not had any significant postoperative bleeding. Urine output remains remove the catheter, in which case switch over to oral pain medicine in addition to Tylenol and Motrin that she is on already. Discontinue the Escalera catheter and saline lock the IV. We will go up to a regular diet. Begin some stool softener today as well. Lam Bear MD /[id number]
[2021-01-15] MEDS: HYDROmorphone 2 MG Tab PO PRN (19:27)
[2021-01-16] MEDS: cefOXitin 2 GM in Sodium Chloride 0.9% 50 ML IV SCH ×3 (01:00→15:47)
[2021-01-16] MEDS: HYDROmorphone 2 MG Tab PO PRN ×5 (01:00→21:51)
[2021-01-16] MEDS: Acetaminophen 500 MG Tab PO SCH ×4 (05:33→21:10)
[2021-01-16] MEDS: Ibuprofen 600 MG Tab PO SCH ×4 (05:34→21:10)
[2021-01-16] MEDS ORDERED: Magnesium Hydroxide 400 MG/5 ML Susp 30 ML Cup PO ONE (08:30)
[2021-01-16] MEDS: Morphine PF 10 MG/10 ML SDV EPIDUR SCH (09:00)
[2021-01-16] MEDS: Docusate Sodium 100 MG Cap PO SCH ×2 (09:01→21:10)
[2021-01-16] MEDS: Bisacodyl 5 MG Tab PO SCH ×2 (09:01→21:10)
[2021-01-16] MEDS ORDERED: Magnesium Hydroxide 400 MG/5 ML Susp 30 ML Cup PO PRN (12:00)
[2021-01-17] MEDS: HYDROmorphone 2 MG Tab PO PRN ×3 (02:32→10:13)
[2021-01-17] MEDS: Ibuprofen 600 MG Tab PO SCH ×2 (05:12→10:36)
[2021-01-17] MEDS: Acetaminophen 500 MG Tab PO SCH ×2 (05:13→10:36)
[2021-01-17] MEDS: Docusate Sodium 100 MG Cap PO SCH (10:37)
[2021-01-17] MEDS: Bisacodyl 5 MG Tab PO SCH (10:38)
--- NOTE | 2021-01-18 14:22 | DISCH ---
FINAL DIAGNOSIS: Term with failure to progress. OPERATIVE PROCEDURE: This was done on 01/14/2021 with section. SUMMARY: This is a 20-year-old female presenting with her first in labor. After having rupture of membranes and laboring for excess of 24 hours, the baby remained very stable, but the patient was failing to progress further and the decision was made to proceed with a section. This was done without incident on 01/14/2021 with a viable male being delivered. Postoperatively, no major problems were noted. Presently, she will be sent home on a regular diet. For medications, she will receive Dilaudid 2 mg q.6 hours p.r.n. pain #12, and then also can take ibuprofen 600 mg q.6 hours p.r.n., and Tylenol 650 mg p.o. q.6 hours p.r.n. She will be instructed to finish off her vitamins and will begin 2 doses of milk of magnesia to augment bowel activities. Follow up will be with Belinda Modi in [facility] on 01/22/2021. /[id number]
--- NOTE | 2021-01-18 16:28 | PN ---
DATE OF SERVICE: 01/16/2021 The patient has been afebrile with stable vital signs. No major problems were noted. No bowel movement as of yet. We will give her some bowel stimulation today. Probably would be ready for discharge home tomorrow. Lam Bear MD /[id number]
--- NOTE | 2021-01-18 16:29 | OR ---
DATE OF PROCEDURE: 01/14/2021 SURGEON: Lam Bear MD PREOPERATIVE DIAGNOSIS: Term with failure to progress. POSTOPERATIVE DIAGNOSIS: Term with failure to progress. OPERATIVE PROCEDURE: section. ANESTHESIA: Epidural. PROBLEM MANAGER: Anahi Cano CNM INDICATIONS FOR PROCEDURE: This is a 20-year-old female with active labor with term who has had ruptured membranes for over 24 hours and is now progressing beyond 5 cm cervical dilation. Plan is for us to proceed with section. Potential risks of the procedure including bleeding, infection, injury to the mother and her baby were all reviewed with the patient, and she wishes to proceed. DETAILS OF PROCEDURE: The patient was taken to the operating room. She had a previous epidural catheter and this was reused for the anesthetic. A hip roll was placed on the right side and the Escalera catheter inserted and the abdomen prepped and draped. A transverse Pfannenstiel incision was made and carried down through the skin and subcutaneous tissue and through the anterior rectus sheath. Subrectus sheath flaps were then raised superiorly and inferiorly, and the midline peritoneum then divided. The peritoneal reflection of bladder on the uterus was then divided and reflected downward. A transverse lower uterine incision was then made and carried down through the full-thickness uterine wall. Viable male was then delivered through vertex presentation and was in occiput posterior presentation. The cord was clamped and cut, and routine care given off the field per physician's assistant, Anahi Cano. The patient was given IV and intrauterine oxytocin and IV cefoxitin. Good uterine contractions were noted, and placenta and membranes were delivered without difficulty. The uterus was then closed with 2 layers of 2-0 Vicryl stitch as was the peritoneal reflection of the bladder on the uterus. The midline musculature and peritoneum were then approximated with #2 Vicryl stitch as was the anterior rectus sheath. The subcutaneous tissue was irrigated with antibiotic- containing saline solution and closed with 2 layers of 3-0 and 4-0 Vicryl stitch deep and then 4-0 Vicryl subcuticular stitch and surgical glue. The patient was taken to the recovery room in satisfactory condition. There were no evident complications. Per ACOG guidelines, the assistance by Anahi johnson CNM, was indicated necessary. Lam Bear MD /[id number]
== END 2021-01-17 12:10 | disposition home or self-care (01) | DRG 788 ==
LOC: JP.OBCHECK 21:37 → JP.OB 22:15 → OBSVTOIN 01-14 14:07 → JP.MS 01-14 15:15
PROVIDERS: ADMIT Advanced Practice Midwife; ATTEND Surgery
PROC: 10D00Z1 Extraction of Products of Conception, Low, Open Approach (ICD-10-PCS; principal; 2021-01-14)
DX: O62.2 Other uterine inertia (principal); Z88.0 Allergy status to penicillin; Z3A.39 39 weeks gestation of pregnancy; Z37.0 Single live birth; Z20.822 Contact with and (suspected) exposure to COVID-19
CPT/HCPCS: 0241U; 36415; 51702; 80305-QW; 81001; 84112; 85025; 88307; 94762; 99211; A9270-GY; J0694; J2270; J2590; J2795; J3010; J3410; J3490; J7120; J7121